=== PATIENT | female | born 1990 | race Caucasian/White ===

== ENCOUNTER 2018-05-22 18:15 | Emergency (ER) | payer OTHER ==
[~2018-05-22] VITALS: Ht 175.3 cm; Wt 81.6 kg
[2018-05-22] MEDS ORDERED: ZIRTEC (19:06)
== END 2018-05-22 22:49 | disposition home or self-care (01) ==
LOC: ER 18:15
DX: J32.8 Other chronic sinusitis (principal); J06.9 Acute upper respiratory infection, unspecified

== ENCOUNTER 2019-11-23 07:56 | Day surgery (SDC) | payer OTHER ==
[~2019-11-23 07:56] MED LIST: ZIRTEC
== END 2019-11-23 14:30 | disposition home or self-care (01) ==
LOC: EDSEX 07:56 → AMB-ENDOS 07:56
PROVIDERS: ATTEND Surgery
DX: K62.89 Other specified diseases of anus and rectum (principal); Z20.828 Contact with and (suspected) exposure to other viral communicable diseases

== ENCOUNTER 2020-05-04 06:10 | Day surgery (SDC) | payer OTHER ==
[2020-05-04] MEDS ORDERED: ULTRACET PO (09:31)
[2020-05-04] MEDS ORDERED: KETO10TA2 PO (09:31)
== END 2020-05-04 16:30 | disposition home or self-care (01) ==
LOC: CIR.AMB 06:10
PROVIDERS: ATTEND Surgery
DX: D01.3 Carcinoma in situ of anus and anal canal (principal); Z20.822 Contact with and (suspected) exposure to COVID-19